=== PATIENT | male | born 1950 | race Caucasian/White ===

== ENCOUNTER → 2021-01-05 13:21 | Outpatient (BNVA) | payer MEDICARE, SELFPAY | PROVIDERS: Family Provider Family Medicine; Visit Provider Nurse Practitioner Family | DX: Z20.822 Contact with and (suspected) exposure to COVID-19 (principal) | CPT/HCPCS: 87635 ==

== ENCOUNTER → 2021-11-01 00:01 | Outpatient (BNVA) | payer MEDICARE, SELFPAY | PROVIDERS: Family Provider Family Medicine; Visit Provider Family Medicine | DX: Z00.00 Encounter for general adult medical examination without abnormal findings (principal); R73.9 Hyperglycemia, unspecified; E78.5 Hyperlipidemia, unspecified | CPT/HCPCS: 80053; 80061 ==

== ENCOUNTER → 2022-01-24 09:05 | Outpatient (BNVA) | payer MEDICARE, SELFPAY | PROVIDERS: Family Provider Family Medicine; Referring Provider Family Medicine; Visit Provider Podiatrist Foot & Ankle Surgery | DX: M72.2 Plantar fascial fibromatosis (principal) | CPT/HCPCS: 73630; 99203; 99204 ==

== ENCOUNTER → 2022-02-26 14:26 | Outpatient (BNVA) | payer MEDICARE, SELFPAY | PROVIDERS: Family Provider Family Medicine; PCP Family Medicine; Visit Provider Podiatrist Foot & Ankle Surgery | DX: M72.2 Plantar fascial fibromatosis (principal) | CPT/HCPCS: 99213; 99214 ==

== ENCOUNTER → 2022-04-30 08:48 | Outpatient (BNVA) | payer MEDICARE, SELFPAY | PROVIDERS: Family Provider Family Medicine; PCP Family Medicine; Visit Provider Family Medicine | DX: E78.5 Hyperlipidemia, unspecified (principal); G47.00 Insomnia, unspecified; R73.9 Hyperglycemia, unspecified; Z12.5 Encounter for screening for malignant neoplasm of prostate; B35.3 Tinea pedis | CPT/HCPCS: 80053; 80061; 99214 ==

== ENCOUNTER → 2022-07-30 09:38 | Outpatient (BNVA) | payer MEDICARE, SELFPAY | PROVIDERS: Family Provider Family Medicine; PCP Family Medicine; Visit Provider Podiatrist Foot & Ankle Surgery | DX: M72.2 Plantar fascial fibromatosis (principal) | CPT/HCPCS: 99213 ==

== ENCOUNTER 2022-11-07 11:13 | Outpatient (CLI) | payer MEDICARE, SELFPAY ==
--- NOTE | 2022-11-07 11:37 | XR_ITS ---
WS: [id number] Exam: XR chest 2V* [id number] Date/Time of Exam: 11/07/2022 11:38 AM Reason For Exam: dyspnea Comparison 11/24/2012. The lungs are clear and fully expanded. Normal cardiomediastinal silhouette and regional bony element s. No pleural effusion. XR/XR chest 2V* [id number] IMPRESSION: 1. Negative chest.
== END 2022-11-07 11:14 | disposition home or self-care (01) ==
PROVIDERS: PCP Family Medicine; Visit Provider Family Medicine
DX: R06.00 Dyspnea, unspecified (principal); M19.90 Unspecified osteoarthritis, unspecified site
CPT/HCPCS: 71046; 80053; 83880; 84550; 85025; 85651; 86140; 86431; 86618; 86666; 86757

== ENCOUNTER 2023-01-03 12:15 | Outpatient (CLI) | payer MEDICARE, SELFPAY ==
--- NOTE | 2023-01-03 12:30 | CT_ITS ---
WS: [id number] CT chest w con* [id number] HISTORY: dyspnea after covid TECHNIQUE: Axial imaging performed through the thorax. Coronal and sagittal reformats are submitted. All CT scans at [facility] use at least one of these dose optimization techniques: automated exposure control; mA and/or kV adjustment per patient size (includes targeted exams where dose is mat ched to clinical indication); or iterative reconstruction. CONTRAST: Omnipaque 350; 100 mL IV. DLP: 577.05 mGy.cm COMPARISON: 06/02/2009 Lungs and central airway: Very mild pulmonary hyperexpansion. No mass or pneumonia. 6 mm perifissural nodule along the RIGHT minor fissure. There are 3 subcentimeter nodules in the LEFT lower lobe which were present in 2009. No atelectasis. No groundglass attenuation or pneumonitis. Pleura: Normal. No pleural effusion. Heart and pericardium: Normal size heart with no pericardial effusion. Mediastinum and lincoln: No mediastinum or hilar adenopathy. Vessels: Normal size aortic and pulmonary artery. No coronary artery calcifications. Chest wall and lower neck: Mild gynecomastia. Upper abdomen: Small hiatal hernia. Mild hepatic steatosis. Visualized upper abdomen is negative. No adrenal mass. Osseous structures: No destructive process. IMPRESSION: 1. No pulmonary mass or pneumonitis. 2. Long-term stability 3 subcentimeter nodules LEFT lower lobe. 3. No adenopathy, mediastinal or hilar. 4. Gynecomastia. 5. Mild hepatic steatosis.
[2023-01-03 12:40] LABS: Blood Urea Nitrogen 17 mg/dL (8-23)
[2023-01-03] MEDS: iohexol 350 mg/mL 500 mL Btl (per mL) IV (12:45)
== END 2023-01-03 12:16 | disposition home or self-care (01) ==
PROVIDERS: PCP Family Medicine; Visit Provider Family Medicine
DX: R06.00 Dyspnea, unspecified (principal); Z86.16 Personal history of COVID-19; R91.8 Other nonspecific abnormal finding of lung field; N62 Hypertrophy of breast; E88.89 Other specified metabolic disorders
CPT/HCPCS: 71260; 82565; 84520; Q9967

== ENCOUNTER 2023-01-23 07:42 | Outpatient (CLI) | payer MEDICARE, SELFPAY ==
[2023-01-23 07:57] VITALS: BMI 35.9
--- NOTE | 2023-01-23 07:58 | ECG_ITS ---
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 Interpretive Statements NAME OF STUDY: EXERCISE SESTAMIBI STRESS TEST INDICATION: Chest Pain; Exertional Dyspnea Baseline blood pressure of 90/66 mm Hg, heart rate of 65 beats per minute and oxygen saturation of 97%. EKG showed sinus rhythm, normal axis with normal ST-Ts. ??? The patient exercised for 4 minutes and 22 seconds on a [standard Gómez protocol]. Patient attained a maximum heart rate of 137 beats per minute( 93 % of the maximum predicted heart rate) with a blood pressure at the peak exercise of 211/104 mm Hg and oxygen saturation of 96%. The EKG at the peak exercise revealed sinus tachycardia with no significant ST-T changes. Patient did not have any chest pain or any significant arrhythmis with the exercise.??? During the recovery phase, there were no new changes. ??? Blood pressure at the end of the recovery phase was 163/63 mm Hg with a heart rate of 75 beats per minute and oxygen saturation of 98%. ??? CONCLUSION: 1. Normal EKG response to treadmill exercise. 2. No exercise-induced chest pain or cardiac arrhythmia. 3. Fair exercise tolerance, attained a maximum of 7 METs. 4. Baseline low blood pressure with hypertensive response to exercise. 5. Perfusion scan will be documented separately. Electronically Signed On 01-27-2023 12:17:19 CDT by Cori Mcconnell M.D. [id number]
--- NOTE | 2023-01-23 07:59 | NMCV_ITS ---
NM marquis perf SPECT r/s* [id number] Franco Dave Age: 73 Gender: M : 1950 Exam Date: 01/23/2023 08:46 Ordering Phys: George Flowers MD Technologist: RAINE Almanza Exam Location: [facility] Indications: SHORTNESS OF BREATH, CHEST PAIN STRESS TEST Please see separate stress test report in [facility] for full findings IMAGE PROTOCOL Rest/Stress 1 Lexiscan Day Radiopharmaceutical Dose (mCi) Administration Site Administered by Rest: Tc-99m 10.8 IV RAINE Pearson Sestamibi Stress:Tc-99m 32.7 IV RAINE Pearson Sestamibi Rest: 23-Jan-2023 60 Discovery 630 Stress: 23-Jan-2023 30 Discovery 630 0.4mg Lexiscan. Supine position only as patient was unable to lay prone. SPECT RESULTS Technical Quality: Excellent Raw Data Analysis: Normal Image Corrections: No attenuation or motion correction applied Summed Stress Score: 5 Summed Rest Score: 6 Summed Difference Score: 1 PERFUSION FINDINGS Small sized perfusion abnormality of moderate severity of mid to apical inferior, apical septal and apical lateral crenshaw on rest and stress images. FUNCTIONAL RESULTS (calculated via Gated SPECT) Stress Image LV EF (%): 72 Stress EDV (mL):103 TID: 0.81 Stress ESV (mL):0 FUNCTIONAL FINDINGS: The left ventricle is normal in size. Transient Ischemia Dilatation of 0.81. The left ventricular ejection fraction is normal with a value of 72%. There is normal left ventricular wall thickening. IMPRESSIONS 1. Small sized fixed perfusion abnormality of moderate severity of mid to apical inferior, apical septal and apical lateral crenshaw. 2. 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 3. Overall left ventricular systolic function is normal without regional wall motion abnormalities, LVEF=72%. 4. No prior similar studies to compare. Cori Mcconnell MD (Electronically Signed) Final Date: 27 January 2023 13:02 S
[2023-01-23 09:49] VITALS: BP 163/63; PULSE 75
== END 2023-01-23 07:43 | disposition home or self-care (01) ==
LOC: CDL 07:43
PROVIDERS: PCP Family Medicine; Visit Provider Family Medicine
DX: R07.9 Chest pain, unspecified (principal); R06.00 Dyspnea, unspecified; I10 Essential (primary) hypertension
CPT/HCPCS: 36415; 78452; 93017; A9500

== ENCOUNTER 2023-03-28 08:49 | Outpatient (CLI) | payer MEDICARE, SELFPAY ==
--- NOTE | 2023-03-28 08:55 | XR_ITS ---
WS: [id number] Exam: XR hand RT 2V [id number] Date/Time of Exam: 03/28/2023 8:57 AM Reason For Exam: hand pain Findings: No fractures, soft tissue swelling, or unusual calcifications are noted. The hand shows normal bony alignment. There is no irregularity of the bony architecture. IMPRESSION: Normal RIGHT hand.
--- NOTE | 2023-03-28 08:55 | XR_ITS ---
WS: [id number] Exam: XR shoulder LT min 2V* [id number] Date/Time of Exam: 03/28/2023 8:57 AM Reason For Exam: shoulder pain No fracture or dislocation. 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 Mild degenerative change at the glenohumeral j oint. Normal soft tissues. IMPRESSION: 1. 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 No fracture or other significant find ing.
--- NOTE | 2023-03-28 08:55 | XR_ITS ---
WS: [email or web address] Exam: XR hand LT 2V [id number] Date/Time of Exam: 03/28/2023 8:57 AM Reason For Exam: hand pain No fracture or dislocation. Minimal DJD at the CMC joint of the thumb. Normal soft tissues. IMPRESSION: 1. No fracture or other significant finding.
--- NOTE | 2023-03-28 08:55 | XR_ITS ---
WS: [email or web address] Exam: XR shoulder RT min 2V* [id number] Date/Time of Exam: 03/28/2023 8:57 AM Reason For Exam: shoulder pain Comparison 03/21/2016. No fracture or dislocation. There is arthrosis and bone spurring at the AC joint. Prominent bone spur projects along the inferior margin of the distal clavicle. Slight DJD at the glenohumeral joint. Nor mal soft tissues. IMPRESSION: 1. 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 Mild DJD of the glenohumeral joint.
== END 2023-03-28 08:50 | disposition home or self-care (01) ==
LOC: RAD 08:51
PROVIDERS: PCP Family Medicine; Visit Provider Family Medicine
DX: M19.012 Primary osteoarthritis, left shoulder (principal); M19.011 Primary osteoarthritis, right shoulder; M77.8 Other enthesopathies, not elsewhere classified; M79.642 Pain in left hand; M79.641 Pain in right hand
CPT/HCPCS: 73030; 73120

== ENCOUNTER 2023-09-12 07:48 | Outpatient (CLI) | payer MEDICARE, SELFPAY | END 2023-09-12 07:49 | disposition home or self-care (01) | PROVIDERS: PCP Family Medicine; Visit Provider Family Medicine | DX: R06.00 Dyspnea, unspecified (principal) | CPT/HCPCS: 94010; 94726; 94729 ==

== ENCOUNTER → 2023-10-03 11:36 | Outpatient (BNVA) | payer MEDICARE, SELFPAY | PROVIDERS: PCP Family Medicine; Visit Provider Family Medicine | DX: E78.5 Hyperlipidemia, unspecified (principal); R73.9 Hyperglycemia, unspecified; G47.33 Obstructive sleep apnea (adult) (pediatric); Z99.89 Dependence on other enabling machines and devices; Z00.00 Encounter for general adult medical examination without abnormal findings; R60.9 Edema, unspecified; E11.9 Type 2 diabetes mellitus without complications | CPT/HCPCS: 80053; 80061; 83036; 83880; 84443 ==

== ENCOUNTER → 2023-10-23 08:31 | Outpatient (BNVA) | payer MEDICARE, SELFPAY | PROVIDERS: PCP Family Medicine; Visit Provider Internal Medicine Rheumatology | DX: M13.841 Other specified arthritis, right hand (principal); M13.842 Other specified arthritis, left hand; Z71.85 Encounter for immunization safety counseling; Z79.899 Other long term (current) drug therapy; Z87.891 Personal history of nicotine dependence | CPT/HCPCS: 36415; 82306; 83520; 85025; 85651; 86200; 86480; 86704; 86803; 87340; 99204 ==

== ENCOUNTER 2023-11-26 08:58 | Outpatient (CLI) | payer MEDICARE, SELFPAY ==
[2023-11-26 09:32] LABS: Basophils # 0.1 10^3/uL (0.0-0.1); Basophils % 0.8 %; Eosinophils # 0.2 10^3/uL (0.0-0.8); Eosinophils % 2.6 %; Hematocrit 44.9 % (37-53); Lymphocytes # 1.1 10^3/uL (0.8-4.8); Lymphocytes % 18.2 %; Mean Corpuscular HGB Conc 33.2 g/dL (30-55); Mean Corpuscular Hemoglobin 32.7 pg (27-33); Mean Corpuscular Volume 98.7 fl (82-101); Mean Platelet Volume 11.5 fL (7.4-10.4); Monocytes # 0.7 10^3/uL (0.2-0.9); Monocytes % 11.7 %; Neutrophils # 4.12 10^3/uL (1.8-7.7); Neutrophils % 66.2 %; Nucleated Red Blood Cells % 0 %; Platelet Count 172 10^3/cmm (157-399); Red Blood Count 4.55 10^6/uL (3.85-5.65); Red Cell Distribution Width 13.2 % (12.1-15.1); White Blood Count 6.22 10^3/uL (3.29-11.43)
[2023-11-26 09:50] LABS: Alanine Aminotransferase 20 U/L (0-41); Albumin Level 4.2 g/dL (3.5-5.2); Alkaline Phosphatase 88 U/L (40-130); Aspartate Amino Transferase 12 U/L (0-40); Globulin 2.4 g/dL (1.3-4.6); Total Bilirubin 0.6 mg/dL (0.15-1.2); Total Protein 6.6 g/dL (6.6-8.7)
== END 2023-11-26 08:59 | disposition home or self-care (01) ==
LOC: LAB 08:59
PROVIDERS: PCP Family Medicine; Visit Provider Internal Medicine Rheumatology
DX: Z79.899 Other long term (current) drug therapy (principal); M19.90 Unspecified osteoarthritis, unspecified site
CPT/HCPCS: 36415; 80076; 82565; 85025

== ENCOUNTER → 2024-02-26 08:58 | Outpatient (BNVA) | payer MEDICARE, SELFPAY | PROVIDERS: PCP Family Medicine; Visit Provider Internal Medicine Rheumatology | DX: M06.041 Rheumatoid arthritis without rheumatoid factor, right hand (principal); M06.042 Rheumatoid arthritis without rheumatoid factor, left hand; Z79.899 Other long term (current) drug therapy; Z71.85 Encounter for immunization safety counseling; Z87.891 Personal history of nicotine dependence | CPT/HCPCS: 80076; 82565; 85025; 85651; 86140; 99214 ==

== ENCOUNTER 2024-05-25 15:02 | Outpatient (CLI) | payer SELFPAY ==
[2024-05-25 15:34] LABS: Basophils # 0.1 10^3/uL (0.0-0.1); Basophils % 0.8 %; Eosinophils # 0.2 10^3/uL (0.0-0.8); Eosinophils % 2.3 %; Hematocrit 44.3 % (37-53); Lymphocytes # 1.8 10^3/uL (0.8-4.8); Lymphocytes % 23.3 %; Mean Corpuscular HGB Conc 33.6 g/dL (30-55); Mean Corpuscular Hemoglobin 32.1 pg (27-33); Mean Corpuscular Volume 95.5 fl (82-101); Mean Platelet Volume 11.3 fL (7.4-10.4); Monocytes # 0.9 10^3/uL (0.2-0.9); Monocytes % 11.4 %; Neutrophils # 4.88 10^3/uL (1.8-7.7); Neutrophils % 61.7 %; Nucleated Red Blood Cells % 0 %; Platelet Count 196 10^3/cmm (157-399); Red Blood Count 4.64 10^6/uL (3.85-5.65); Red Cell Distribution Width 13.2 % (12.1-15.1)
[2024-05-25 15:50] LABS: Alanine Aminotransferase 22 U/L (0-41); Albumin Level 4.2 g/dL (3.5-5.2); Alkaline Phosphatase 98 U/L (40-130); Aspartate Amino Transferase 16 U/L (0-40); Total Bilirubin 0.6 mg/dL (0.15-1.2); Total Protein 7.2 g/dL (6.6-8.7)
[2024-05-25 15:53] LABS: Erythrocyte Sedimentation Rate 12 mm/hr (0-10)
== END 2024-05-25 15:03 | disposition home or self-care (01) ==
PROVIDERS: PCP Family Medicine; Visit Provider Internal Medicine Rheumatology
DX: M06.041 Rheumatoid arthritis without rheumatoid factor, right hand (principal); M06.042 Rheumatoid arthritis without rheumatoid factor, left hand; Z79.899 Other long term (current) drug therapy
CPT/HCPCS: 36415; 80076; 82565; 85025; 85651; 86140

== ENCOUNTER → 2024-08-17 09:57 | Outpatient (BNVA) | payer MEDICARE, SELFPAY | PROVIDERS: PCP Family Medicine; Visit Provider Internal Medicine Rheumatology | DX: M06.041 Rheumatoid arthritis without rheumatoid factor, right hand (principal); M06.042 Rheumatoid arthritis without rheumatoid factor, left hand; Z71.85 Encounter for immunization safety counseling; Z79.899 Other long term (current) drug therapy | CPT/HCPCS: 36415; 80076; 82565; 85025; 85651; 86140; 99214 ==

== ENCOUNTER → 2024-09-29 10:24 | Outpatient (BNVA) | payer MEDICARE, SELFPAY | PROVIDERS: PCP Family Medicine; Visit Provider Family Medicine | DX: E78.5 Hyperlipidemia, unspecified (principal); M19.90 Unspecified osteoarthritis, unspecified site; R73.9 Hyperglycemia, unspecified; Z79.899 Other long term (current) drug therapy | CPT/HCPCS: 80053; 80061; 83036; 85025 ==